=== PATIENT | male | born 1985 | race Caucasian/White ===

== ENCOUNTER 2020-11-02 17:23 | Emergency (ER) | payer OTHER ==
[~2020-11-02] VITALS: Ht 182.9 cm; Wt 113.4 kg
--- NOTE | 2020-11-02 17:23 | NUR ---
Pt TERESA to bed 02 via galo.
[2020-11-02 17:33] VITALS: BP 132/82
--- NOTE | 2020-11-02 17:37 | NUR ---
35 Y/O MALE C/O METH WIDRAWALS. PER EMS LAST METH USE WAS 3 DAYS AGO. ACCU CHECK 442. DENIES ANY PAIN. RT AC 18G IV, INTACT, PATENT. MEDHX: DM, SCHIZOPHRENIA NKA
--- NOTE | 2020-11-02 17:55 | NUR ---
GARY PRIETO AT BEDSIDE EXAMINING PT
[2020-11-02] MEDS ORDERED: LORazepam 2 MG/ML VIAL IVP ONE (18:00)
--- NOTE | 2020-11-02 18:00 | NUR ---
PT REQUESTING FOR FOOD AND WATER. PER GARY GRIGGS TO GIVE. JELLO AND WATER PROVIDED.
[2020-11-02] MEDS ORDERED: HYDR-637 PO (18:26)
[2020-11-02 19:06] VITALS: BP 132/82
--- NOTE | 2020-11-02 19:06 | NUR ---
HOMELESS MEAL PACKET, RESOURCES PACKCET, AND BUS PASS PROVIDED.
--- NOTE | 2020-11-02 19:06 | NUR ---
Patient discharged with v/s stable. Written and verbal after care instructions given and explained. Patient alert, oriented and verbalized understanding of instructions. Ambulatory with steady gait. All questions addressed prior to discharge. ID band removed. Patient advised to follow up with PMD. Rx of HYDROXYZINE HCL given. Patient educated on indication of medication including possible reaction and side effects. Opportunity to ask questions provided and answered.
== END 2020-11-02 19:06 | disposition home or self-care (01) ==
LOC: MED 17:23
DX: F15.23 Other stimulant dependence with withdrawal (principal); R06.02 Shortness of breath; R25.1 Tremor, unspecified; F20.9 Schizophrenia, unspecified; E11.9 Type 2 diabetes mellitus without complications; Z79.899 Other long term (current) drug therapy
CPT/HCPCS: 81002; 96374; 99284; J2060

== ENCOUNTER 2020-11-04 08:09 | Emergency (ER) | payer OTHER ==
[~2020-11-04] VITALS: Ht 182.9 cm; Wt 113.4 kg
[~2020-11-04 08:09] MED LIST: HYDR-637 PO
[2020-11-04 08:17] VITALS: BP 152/116
--- NOTE | 2020-11-04 08:29 | NUR ---
Patient being evaluated by physician at bedside.
[2020-11-04] MEDS ORDERED: risperiDONE 1 MG TAB PO SCH (08:35)
[2020-11-04] MEDS ORDERED: busPIRone 5 MG TAB PO SCH (08:35)
[2020-11-04] MEDS ORDERED: INSULIN LANTUS 100 UNITS/ML 10 ML VIAL SUBQ ONE (08:40)
[2020-11-04 09:15] LABS: ANION GAP 14.6 (8-16); CARBON DIOXIDE 24.3 mmol/L (21-32); CREATININE 0.9 mg/dL (0.6-1.3); POTASSIUM 3.9 mmol/L (3.5-5.1)
--- NOTE | 2020-11-04 09:59 | NUR ---
Called pharmacy for medication
[2020-11-04] MEDS ORDERED: INSULIN REGULAR, HUMAN 100 UNIT/ML VIAL SUBQ ONE (10:05)
[2020-11-04] MEDS ORDERED: RISP3TAB PO (12:12)
[2020-11-04] MEDS ORDERED: BUSP10TA3 PO (12:12)
--- NOTE | 2020-11-04 12:42 | NUR ---
NO NURSING INTERVENTIONS GIVEN
--- NOTE | 2020-11-04 12:43 | NUR ---
Patient discharged with v/s stable. Written and verbal after care instructions given and explained. Patient alert, oriented and verbalized understanding of instructions. Ambulatory with steady gait. All questions addressed prior to discharge. ID band removed. Patient advised to follow up with PMD. Rx of RISPERIDONE AND BUSPIRONE given. Patient educated on indication of medication including possible reaction and side effects. Opportunity to ask questions provided and answered.
== END 2020-11-04 12:43 | disposition home or self-care (01) ==
LOC: MED 08:09
DX: E11.9 Type 2 diabetes mellitus without complications (principal); Z76.0 Encounter for issue of repeat prescription; Z79.899 Other long term (current) drug therapy
CPT/HCPCS: 36415; 80048; 81002; 82948; 96372; 99283; J1815; 99284